=== PATIENT | male | born 1935 | race Caucasian/White ===

== ENCOUNTER 2022-08-11 19:35 | Inpatient (IN) | payer MEDICARE, OTHER ==
[~2022-08-11] VITALS: Ht 170.2 cm; Wt 93.0 kg
--- NOTE | 2022-08-11 19:37 | NUR ---
DANUTA HALL TO BED #7
[2022-08-11 19:40] VITALS: BP 95/66
--- NOTE | 2022-08-11 19:40 | NUR ---
BIB BY AMBULANCE FROM [facility] WITH COMPLAINT OF HEMATURIA, ADDITIONAL XRAY DONE TODAY WITH SHOWED LEFT PLEURAL EFFUSION. PT. IS YEMENI SPEAKING. AWAKE AND ALERT. PLACED ON BED 7. ATTACHED TO CARDIAC MOITOR. PLACED COMFORTABLY.
--- NOTE | 2022-08-11 19:40 | NUR ---
EDEMA NOTED ON BOTH LEGS, PT HAD BLOOD IN SPUTUM
[2022-08-11 20:11] LABS: BASOPHILS % (AUTO) 0.2 % (0.0-2.0); EOSINOPHILS % (AUTO) 0.1 % (0.0-4.0); HEMATOCRIT 49.7 % (36-52); HEMOGLOBIN 16.4 g/dL (12.0-18.0); LYMPHOCYTES # (AUTO) 1.1 K/uL (2.0-11.5); LYMPHOCYTES % (AUTO) 14.5 % (20.5-51.1); MEAN CORPUSCULAR HEMOGLOBIN 31 pg (27-31); MEAN CORPUSCULAR HGB CONC 33 g/dL (33-37); MEAN CORPUSCULAR VOLUME 94.1 fL (80-94); MONOCYTES # (AUTO) 0.6 K/uL (0.8-1.0); MONOCYTES % (AUTO) 7.5 % (1.7-9.3); NEUTROPHILS % (AUTO) 77.7 % (42.2-75.2); PLATELET COUNT (AUTO) 97 K/uL (140-450); RED BLOOD CELL COUNT(AUTO) 5.28 MIL/uL (4.20-6.10); RED CELL DISTRIBUTION WIDTH 17.4 % (11.6-13.7); WHITE BLOOD COUNT (AUTO) 7.7 K/uL (4.8-10.8)
--- NOTE | 2022-08-11 20:25 | NUR ---
X-Ray at bedside.
[2022-08-11 20:29] LABS: ACETAMINOPHEN < 0.5 ug/ml (10-30); ALBUMIN 2.3 g/dL (3.4-5.0); ANION GAP 8.1 (8-16); ASPARTATE AMINOTRANSFERASE 290 U/L (15-37); CARBON DIOXIDE 32.3 mmol/L (21-32); CHLORIDE 101 mmol/L (98-107); CREATININE 2.1 mg/dL (0.6-1.3); GLUCOSE 144 mg/dL (74-106); LIPASE 104 U/L (73-393); POTASSIUM 5.4 mmol/L (3.5-5.1); SALICYLATE < 2.8 mg/dL (2.8-20.0); SODIUM SERUM 136 mmol/L (136-145); TOTAL BILIRUBIN 3.4 mg/dL (0.0-1.0); UREA NITROGEN, BLOOD 50 mg/dL (7-18)
--- NOTE | 2022-08-11 21:09 | NUR ---
Johnnie hinojosa in [facility] - 08/11/22 at 2109 by MICHAELA PT SPEAKING WITH TEDDY, DR. BAZZI, VIA REMOTE COMMUNICATION
--- NOTE | 2022-08-11 21:13 | NUR ---
PT RETURN FROM RADIOLOGY
--- NOTE | 2022-08-11 21:14 | NUR ---
RETURNED FROM CT
--- NOTE | 2022-08-11 21:43 | NUR ---
FURTHER ASSESSMENT PROVIDED TO PT USING VOICE BUSINESS DEVELOPMENT COORDINATOR WITH BUSINESS DEVELOPMENT COORDINATOR ID: [id number], BUSINESS DEVELOPMENT COORDINATOR NAME DANY. PT IS CONFUSED AND CANNOT RESPONDED APPROPRIATELY
[2022-08-11] MEDS ORDERED: ASPIRIN 325 MG TAB PO ONE (21:45)
[2022-08-11] MEDS ORDERED: NACL 0.9% 1,000 ML IV ONE (22:10)
[2022-08-11] MEDS ORDERED: ATORVASTATIN 20 MG TAB PO STA (22:19)
--- NOTE | 2022-08-11 22:27 | NUR ---
PT RETURN FROM RADIOLOGY
[2022-08-11] MEDS ORDERED: ONDANSETRON 4 MG/2 ML VIAL IVP PRN (22:35)
[2022-08-11] MEDS ORDERED: HYDROcodone/APAP 5/325 MG 1 TAB TAB PO PRN ×2 (22:35)
[2022-08-11 22:48] LABS: PROTHROMBIN TIME 18.1 secs (10.8-13.4)
[2022-08-11] MEDS ORDERED: cefTRIAXone 1,000 MG VIAL ONE (22:54)
[2022-08-11] MEDS ORDERED: ASPIRIN 325 MG TAB ONE (22:55)
--- NOTE | 2022-08-11 23:00 | NUR ---
PT REFUSED TO TAKE P.O. MEDS
--- NOTE | 2022-08-11 23:02 | NUR ---
Ultrasound at bedside.
--- NOTE | 2022-08-11 23:26 | NUR ---
PT. SEEN SLEEPING. NOT IN DISTRESS WITH STABLE VS
[2022-08-12] MEDS ORDERED: BUS5 PO (00:03)
[2022-08-12] MEDS ORDERED: FAMO40TA12 PO (00:06)
[2022-08-12] MEDS ORDERED: INSU100S10 SC ×2 (00:09→00:10)
[2022-08-12] MEDS ORDERED: FURO-570 PO (00:11)
[2022-08-12] MEDS ORDERED: LISI10TA30 PO (00:13)
[2022-08-12] MEDS ORDERED: SPIR50TA PO (00:14)
--- NOTE | 2022-08-12 00:17 | NUR ---
PT. REFUSED FOR TROPONIN I BLOOD EXTRACTION
--- NOTE | 2022-08-12 03:05 | NUR ---
PT. REMOVED IV. Applied folded 4x4 gauze and tape to stop bleeding.
--- NOTE | 2022-08-12 05:00 | NUR ---
BEDSIDE CARE DONE. CHANGED GOWN, LINEN, AND DIAPER. TURN TO SIDES EVERY 2 HOURS DONE
--- NOTE | 2022-08-12 07:20 | NUR ---
Report recieved from PREETI Tai for transfer of care.
--- NOTE | 2022-08-12 07:21 | NUR ---
The patient's care was reviewed and supervised by Susan Govea, RN, RN.
[2022-08-12 08:05] LABS: BASOPHILS % (AUTO) 0.1 % (0.0-2.0); EOSINOPHILS % (AUTO) 0.1 % (0.0-4.0); HEMATOCRIT 50.5 % (36-52); HEMOGLOBIN 16.9 g/dL (12.0-18.0); LYMPHOCYTES % (AUTO) 13.4 % (20.5-51.1); MEAN CORPUSCULAR HEMOGLOBIN 31 pg (27-31); MEAN CORPUSCULAR HGB CONC 33 g/dL (33-37); MEAN CORPUSCULAR VOLUME 93.3 fL (80-94); MONOCYTES # (AUTO) 0.6 K/uL (0.8-1.0); MONOCYTES % (AUTO) 8.2 % (1.7-9.3); NEUTROPHILS % (AUTO) 78.2 % (42.2-75.2); PLATELET COUNT (AUTO) 89 K/uL (140-450); RED BLOOD CELL COUNT(AUTO) 5.41 MIL/uL (4.20-6.10); RED CELL DISTRIBUTION WIDTH 17.8 % (11.6-13.7); WHITE BLOOD COUNT (AUTO) 7.7 K/uL (4.8-10.8)
--- NOTE | 2022-08-12 08:05 | NUR ---
Patient was made clean and dry. Fresh diaper applied.
--- NOTE | 2022-08-12 08:13 | NUR ---
Patient will be admitted to care of Dr. Goldberg. Admited to Telemetry. Will go to room 121-B. Belongings list completed. Report to PREETI Marmolejo.
[2022-08-12 08:15] LABS: CARBON DIOXIDE 31.1 mmol/L (21-32); CHLORIDE 101 mmol/L (98-107); CREATININE 1.8 mg/dL (0.6-1.3); GLUCOSE 114 mg/dL (74-106); POTASSIUM 4.1 mmol/L (3.5-5.1); SODIUM SERUM 137 mmol/L (136-145); UREA NITROGEN, BLOOD 46 mg/dL (7-18)
--- NOTE | 2022-08-12 08:30 | NUR ---
RECEIVED PATIENT FROM ED. PATIENT MUMBLING CONTINUOSLY. ASSESSED ALER T AND ORIENTED X2. PATIENT SEEN CURLED UP ON LEFT SIDE. ASSESSMENT DONE. CARE PLAN STARTED.
--- NOTE | 2022-08-12 08:44 | NUR ---
PATIENT HAS BEEN SCREENED AND CATEGORIZED LOW NUTRITION RISK. PATIENT WILL BE SEEN WITHIN 7 DAYS OF ADMISSION. 08/18/[address]
[2022-08-12] MEDS: AZITHROMYCIN 250 MG TAB PO SCH (09:00)
[2022-08-12 12:00] VITALS: BP 142/78
--- NOTE | 2022-08-12 14:29 | NUR ---
ELMO PLANNING 87 Y.O CYMRAES SPEAKING MALE WITH HX TYPE 2 DM,CHF HYPERLIPIDEMIA,HTN,TIA ,LEGALLY BLIND WAS BROUGHT TO ED X 3 DAYS HX OF HEMOPTYSIS.A RESIDENT OF [facility] .PATIENT HAD ALSO DECREASED P.O INTAKE AND HAS BEEN LESS RESPONSIVE THE PAST FEW DAYS.CXR SHOWS LEFT PLEURAL EFFUSION. TROPONIN LEVELS WERE ELEVATED.NO COMPLAINTS OF CHEST PAIN.ASA GIVEN.ECHOCARDIOGRAM REQUESTED. CONSULTED BUT HAS NOT SEEN PATIENT YET.CLINICALS FAXED TO [facility] .TRANSFER TO [facility] PENDING 'S CLEARANCE.CM TO FOLLOW. Addendum: 08/13/22 at 1129 by ELHAM IGNACIO CM DC PLANNING TALKED TO PAO FREIRE AT [facility].UPDATED CLINICALS FAXED. SAW PATIENT LAST NIGHT AND PATIENT WAS STARTED ON HEPARIN DRIP.NO CARDIAC CATH OR CARDIAC INTERVENTION SUGGESTED DUE TO OLD AGE AND HX OF SEVERE DEMENTIA.FOR THORACENTESIS TODAY FOR LEFT PLEURAL EFFUSION. TO GIVE UPDATE TO [facility] AFTER THORACENTESIS IF PATIENT WILL STILL BE TRANSFERRED TO [facility]. CM TO FOLLOW. Addendum: 08/13/22 at 1131 by ELHAM IGNACIO CM DC PLANNING -ADDENDUM AUTH # [id number] GIVEN BY MOUNA FOR HOSPITAL STAY FROM -AUGUST 13. Addendum: 08/13/22 at 1518 by ELHAM IGNACIO CM DC PLANNING CORRECTION -AUTH IS FROM 08/11/22-08/13/22 PATIENT IS POST THORACENTESIS.2,300 CC FLUID ASPIRATED.VS STABLE.PATIENT IS ALERT AND ORIENTED NO COMPLAINTS OF PAIN PER UNIT RN.
[2022-08-12 16:00] VITALS: BP 136/80
--- NOTE | 2022-08-12 19:33 | NUR ---
ENDORSED TO PM NURSE FOR CONTINUTY OF CARE
[2022-08-12 20:00] VITALS: BP 104/61
--- NOTE | 2022-08-12 20:34 | NUR ---
1925 HAND-OFF REPORT RECEIVED FROM TANIYA RN FOLLOWING BEDSIDE ROUNDS FOR CONTINUITY OF CARE. 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 RECEIVED REPORTED. CONT TO MONITOR.
--- NOTE | 2022-08-12 20:40 | NUR ---
HR 130'S. HOB RAISED TO 45 DEGREES. SEVERAL SIPS OF WATER ACCEPTED. WARM BLANKET AND VERY LIGHT BACK RUB GIVEN. ALL LIGHTS OUT. NOTED HEART RATE NOW 100. WILL CONT TO MONITOR AND ASSIST. CALL LIGHT WITHIN REACH.
[2022-08-13] VITALS (7 sets, daily range): BP systolic 105–127; BP diastolic 65–83
[2022-08-13] MEDS ORDERED: HEPARIN PER PHARMACY MC PRN (00:10)
[2022-08-13] MEDS ORDERED: hePARIN / DEXT 5% PREMIX 250 ML IV PRN (00:10)
[2022-08-13] MEDS ORDERED: hePARIN / DEXT 5% PREMIX 250 ML IV SCH ×2 (01:40→14:30)
--- NOTE | 2022-08-13 04:00 | NUR ---
ASSISTED TO BEDSIDE CHAIR FOR A MORE UPRIGHT POSITION TO AID IN RESPIRATORY EFFICIENCY. PT APPEARS CALM AND LESS RESTLESS.
--- NOTE | 2022-08-13 04:45 | NUR ---
PATIENT WAS SITTING IN CHAIR AND OBSERVED BY NURSE FROM CHAIR TO SITTING ON FLOOR. NO CHANGE IN PHYSICAL ASSESSMENT. ASSISTED BACK TO NEIGHBORING BED WITH FUNCTIONING BED ALARM. B/P 120/[id number] 22 TEMP 97.6 96% O2 SAT ON ROOM AIR. NO OBSERVABLE CHANGE.
--- NOTE | 2022-08-13 06:27 | NUR ---
MD ESPINOSA NOTIFIED OF FALL. STANDING BY FOR ANY NEW ORDERS. PT RESTING. NO OBSERVABLE CHANGES.
--- NOTE | 2022-08-13 07:15 | NUR ---
RECEIVED PATIENT FROM PM NURSE FOR CONTINUITY OF CARE. PATIENT SEEN ASLEEP. NORMAL RISE AND FALL OF CHEST. CARE PLAN REVIEWED. PATIENT CARE CONTINUED.
--- NOTE | 2022-08-13 07:30 | NUR ---
0730 HAND-OFF REPORT TO RETURNING NURSE TANIYA RN FOR CONTINUITY OF CARE. ENDORSED: PT SAT UP IN CHAIR AND LATER OBSERVED SITTING IN FRONT OF CHAIR ON FLOOR. NO SKIN CHANGES, NO CHANGE IN PHYSICAL OR EMOTIONAL BASELINE PRIOR TO FALL. NOTIFIED MD ESPINOSA VIA TEXT AT 0630. NO RESPONSE RECEIVED OF YET TO ANY CHANGE IN ORDERS. ENDORSED TO CONTINUE MONITOR PT AND AWAIT ANY CHANGE IN ORDERS. ALSO INDORSED HEPARIN DRIP BEGAN @ 10 ML/HR AND NEXT PTT AT 0800. PT TRANSFERRED TO BED WITH FUNCTIONING ALARM. RELINQUISHED CARE OF PT AT THIS TIME.
--- NOTE | 2022-08-13 07:45 | NUR ---
PATIENT IV HUB DISLODGED. PATIENT RESISTANT TO IV PLACEMENT. COMFORT MEASURES GIVEN TO PATIENT IN ORDER FOR PATIENT TO RELAX AND SLEEP TO INSERT ANOTHER IV. HEPARIN DRIP PAUSED UNTIL NEXT IV PLACEMENT.
--- NOTE | 2022-08-13 08:30 | NUR ---
PATIENT IV REINSERTED. PATIENT EATING BREAKFAST BUT REFUSES IV LINE TO BE CONNECTED WHILE EATING.
--- NOTE | 2022-08-13 08:41 | NUR ---
PT. WITH LOW MARKELL SCALE AT MODERATE RISK, CONTINUE TO FOLLOW PRESSURE INJURY PREVENTION INTERVENTIONS. -POSITIONING: TURN AND REPOSITION PATIENT Q 2H OR SOONER USE PILLOWS TO KEEP BONY PROMINENCES FROM DIRECT CONTACT WITH SURFACES USE REPOSITIONING WEDGES TO PROVIDE 30-DEGREE ANGLE FOR SIDE LYING POSITIONS OFFLOADING OR FOAM DRESSING TO ALL TUBING TO PREVENT MEDICAL DEVICES RELATED PRESSURE INJURY -RE-EVALUATING AND MANAGING INCONTINENCE MONITOR SKIN CONDITION DURING POSITION CHANGE DO NOT MASSAGE REDNESS, BONY PROMINENCES FREQUENT AMALIA-CARE AND PROVIDE BARRIER CREAMS PRN IF SOILING MOISTURE CONTROL BY OFFER BED BILL/URINAL /ABSORBENT PAD TO WICK AND HOLD MOISTURE KEEP SKIN DRY AND PROTECT FROM FRICTION -MANAGE FRICTION/SHEAR/MOBILITY KEEP HOB AT THE LOWEST LEVEL OF ELEVATION NO MORE THAN 30 DEGREE UNLESS OTHERWISE CONTRAINDICATED USE LIFT SHEET OR TRANSFER DEVICE TO MOVE PATIENT AND PREVENT LATERAL SHEER. PROTECT HEELS, ELBOWS BONY PROMINENCES WITH SKIN BERRIES OR FOAM DRESSING IF EXPOSED TO FRICTION OFFLOAD BILATERAL HEELS BY PLACING PILLOWS UNDER CALVES AT ALL TIMES, UNLESS OTHERWISE CONTRAINDICATED -PRESSURE REDISTRIBUTION SURFACE THERAPY ESTHER ISOFLEX MATTRESS -NUTRITION: PLEASE FOLLOW RD RECOMMENDATIONS AND OFFER NUTRITION SUPPLEMENTS IF ORDERED. PLEASE CONTACT WOUND CARE NURSE FOR ANY QUESTION AND CHANGE OF WOUND CONDITION.
[2022-08-13] MEDS ORDERED: METOPROLOL SUCCINATE 50 MG TABER PO SCH (09:00)
[2022-08-13] MEDS: FUROSEMIDE 40 MG/4 ML VIAL IVP SCH ×2 (09:00→17:00)
[2022-08-13] MEDS ORDERED: ECOTRIN 81 MG TABEC PO SCH (09:00)
[2022-08-13 09:25] LABS: ANION GAP 9.7 (8-16); CARBON DIOXIDE 30.2 mmol/L (21-32); CHLORIDE 102 mmol/L (98-107); CREATININE 1.8 mg/dL (0.6-1.3); GLUCOSE 159 mg/dL (74-106); POTASSIUM 4.9 mmol/L (3.5-5.1); SODIUM SERUM 137 mmol/L (136-145); UREA NITROGEN, BLOOD 54 mg/dL (7-18)
[2022-08-13 09:27] LABS: BASOPHILS % (AUTO) 0.1 % (0.0-2.0); HEMATOCRIT 46.2 % (36-52); HEMOGLOBIN 15.3 g/dL (12.0-18.0); LYMPHOCYTES # (AUTO) 0.9 K/uL (2.0-11.5); LYMPHOCYTES % (AUTO) 11.5 % (20.5-51.1); MEAN CORPUSCULAR HEMOGLOBIN 31 pg (27-31); MEAN CORPUSCULAR HGB CONC 33 g/dL (33-37); MEAN CORPUSCULAR VOLUME 93.7 fL (80-94); MONOCYTES # (AUTO) 0.9 K/uL (0.8-1.0); MONOCYTES % (AUTO) 10.9 % (1.7-9.3); NEUTROPHILS # (AUTO) 6.1 K/uL (1.8-7.7); NEUTROPHILS % (AUTO) 77.5 % (42.2-75.2); PLATELET COUNT (AUTO) 86 K/uL (140-450); RED BLOOD CELL COUNT(AUTO) 4.93 MIL/uL (4.20-6.10); RED CELL DISTRIBUTION WIDTH 17.6 % (11.6-13.7); WHITE BLOOD COUNT (AUTO) 7.9 K/uL (4.8-10.8)
--- NOTE | 2022-08-13 09:39 | NUR ---
PATIENT FOR THORACENTESIS. HEPARIN DRIP PAUSED.
[2022-08-13] MEDS: AZITHROMYCIN 250 MG TAB PO SCH (10:04)
--- NOTE | 2022-08-13 15:45 | NUR ---
PER DR. GOYAL, HEPARIN DRIP TO BE DISCONTINUED AND STARTED ON ELIQUIS 2.5MG BID. HEPARIN DRIP D/C AND DISCARDED. PHARMACY NOTIFIED.
[2022-08-13] MEDS ORDERED: AMIODARONE 450 MG in DEXTROSE 5% 250 ML IV SCH (17:20)
[2022-08-13] MEDS ORDERED: AMIODARONE 150 MG in DEXTROSE 5% 100 ML IV ONE (17:20)
[2022-08-13] MEDS ORDERED: APIXABAN 2.5 MG TAB ONE (17:40)
--- NOTE | 2022-08-13 17:47 | NUR ---
CARDIO MD GAVE VERBAL ORDER OF ADMINISTRATION OF SCHEDULED MEDICATION ELIQUIS 2.5MG TAB NOW. MEDICATION GIVEN TO PATIENT.
--- NOTE | 2022-08-13 19:20 | NUR ---
ENDORSED PATIENT TO PM NURSE. PATIENT FOR TRANSFER TO [facility]. SPOKE WITH SALEEM ON PHONE AND RECEIVED INFORMATION ON PATIENT TRANPORT, ROOM NUMBER AND ATTENDING MD AT [facility]. ENDORSED REPORT TO PM NURSE FOR THE 2029 TRANSFER OF PATIENT.
--- NOTE | 2022-08-13 19:30 | NUR ---
HAND-OFF REPORT RECEIVED FROM TANIYA RN FOLLOWING BEDSIDE ROUNDS. ENDORSED: READY FOR TRANSFER TO [facility] WITH PICKUP SCHEDULED FOR 2029 WITH D/C PACKET READY. WILL CALL MARIKA (SON) JUST BEFORE TRANSFER. CALL DEWART TO GIVE REPORT TO ACCEPTING NURSE. PT ASSIGNED TO ROOM 503
[2022-08-13 20:14] LABS: GLUCOSE,BODY FLUID 150 mg/dL; TOTAL VOLUME,BODY FLUID 2350 mL
[2022-08-13 20:15] LABS: SPECIMENTYPE,BODY FLUID PLEURAL FLUID
--- NOTE | 2022-08-13 20:15 | NUR ---
PHONED CAMMY WITH REPORT GIVEN TO BHASKAR [phone]. INFORMED ROOM ASSIGNMENT TO CHANGE.
[2022-08-13 20:28] LABS: APPEARANCE,SPUN,BODY FLUID CLEAR (CLEAR); APPEARANCE,UNSPUN,BODY FLUID HAZY (CLEAR); COLOR,BODY FLUID AMBER (LT YELLOW)
[2022-08-13 20:29] LABS: POLYNUCLEAR, BODY FLUID 85 %; RBC, BODY FLUID 10000 /cu. mm.; WBC, BODY FLUID 300 /cu. mm.
--- NOTE | 2022-08-13 20:45 | NUR ---
REPORT GIVEN TO TITUS SINGLETARY FOR [facility]. [phone]. REQUESTING COMPLETE COPY OF CHART SENT VIA [employer]. LAST SET OF VS GIVEN. INSTRUCTED TO CALL BACK IF PATIENT STATUS CHANGES BEFORE TRANSFER.
[2022-08-13] MEDS ORDERED: APIXABAN 2.5 MG TAB PO SCH (21:00)
--- NOTE | 2022-08-13 21:08 | NUR ---
PT DISCHARGED VIA S EMT TRANSPORT. DISCHARGE PACKET GIVEN TO TRANSPORTING PERSONNEL TO GIVEN TO [place]. PT STATUS SAME. TELE BOX REMOVED. ARM BAND REMOVED.[id number]/71 97% ON RA.
== END 2022-08-14 | disposition short-term general hospital (02) | DRG 871 ==
LOC: MED 19:35 → MTU 22:36
PROVIDERS: ADMIT Internal Medicine; ATTEND Internal Medicine
PROC: 0W9B30Z Drainage of Left Pleural Cavity with Drainage Device, Percutaneous Approach (ICD-10-PCS; principal; 2022-08-13)
DX: A41.9 Sepsis, unspecified organism (principal); I21.A1 Myocardial infarction type 2; I50.23 Acute on chronic systolic (congestive) heart failure; J18.9 Pneumonia, unspecified organism; N17.9 Acute kidney failure, unspecified; I13.0 Hypertensive heart and chronic kidney disease with heart failure and stage 1 through stage 4 chronic kidney disease, or unspecified chronic kidney disease; I42.9 Cardiomyopathy, unspecified; J90 Pleural effusion, not elsewhere classified; E78.5 Hyperlipidemia, unspecified; I25.10 Atherosclerotic heart disease of native coronary artery without angina pectoris; E87.5 Hyperkalemia; N18.30 Chronic kidney disease, stage 3 unspecified; F03.90 Unspecified dementia, unspecified severity, without behavioral disturbance, psychotic disturbance, mood disturbance, and anxiety; Z20.822 Contact with and (suspected) exposure to COVID-19; Z86.73 Personal history of transient ischemic attack (TIA), and cerebral infarction without residual deficits
CPT/HCPCS: 36415; 70450; 71045; 76604; 76770; 76942; 80048; 80053; 82945; 83605; 83690; 83735; 83880; 84157; 84484; 85025; 85610; 85730; 87040; 87070; 87075; 87081; 87205; 89051; 96365; 99285; G0480; G0482; J0696; J1644; J1940; J2001; J7060; Q0092